=== PATIENT | female | born 1935 | race Caucasian/White ===

== ENCOUNTER → 2017-07-05 | Outpatient (RCR) | payer OTHER ==
--- NOTE | 2017-06-22 09:34 | RS.OPPTEV2 ---
Date of Note: 06/21/17 Visit #: 1 Date of Evaluation: 06/21/17 Payer Source: MEDICARE Treatment Diagnosis: Pain in right knee, Pain in right hip, gait abnormality Prior Level of Function.....Patient was independent with: ADL's, Self Care, Caregiving, Ambulation/Mobility, Community Integration/Access Functional Limitations: Sleep, ADL's, Standing, Squatting, Ambulation, Community Access/Integration Current Subjective/complaints:: Patient reports right knee and hip pain. States pain has been constant for approximately 3-4 weeks. States she has pain with walking and when being on her feet a long time. States sitting too long also bothers her. Reports pain has interrupted her sleep. She is unable to tolerate lying on the right side very long due to right hip pain. States she was taking Motrin regularly, but she is trying to get off of it. She now just takes it at night. She fractured the right patella over 20 years ago, and was told then that she would need a TKA in five years. Reports she had not had any trouble with the knee until now. States Xrays of the right hip reveal arthritis. States her walking has been affected by her right knee and hip pain. She does not use an assistive device. She has used heat and topical rubs such as Biofreeze and Aspercreme. States she occasionally has pain down the leg and some light tingling into the right foot. Treatment Side (optional): Right Medical History Medical History: Hypertension Medical History Comments:: hyperglycemia,hyperlipidemia, osteoporosis Surgical History: Cholecystectomy Surgical History Comments:: Right knee surgery following patella fracture, vein harvesting from right LE Hx Home Medications: aspirin,Calcium,Fosamax,lisinopril, Zetia Patient's Goals: Her goal is to get relief of right hip and knee pain. Pain Assessment - Pain Description Pain Location: right hip and knee Worst Pain Intensity: 6/10 Functional Outcome Measure LE Functional Scale: 50 (50/80=37.5% impairment) - G Codes & Severity Modifier G Codes & Modifier: Mob current CJ. Mob goal CI Source of G Code score: LE functional scale Gait - Gait Pattern Gait Comments: Patient ambulates without an assistive device, independently. Ambulates with an antalgic gait, with decreased stance phase on the right LE. General Range of Motion: Bilateral hip AROM is WFL's. Right knee active flexion to 104 degrees, extension to -2 degrees. Right knee presents significant crepitus with ROM. Left knee active flexion 116 degrees, extension to -10 degrees. Muscle Strength: Right hip generally 4-/5 throughout, quads 4-/5, HS 4/5, ankle 4+/5. Left LE 4+/5 throughout. Trunk strength 4-/5. Special Tests: Valgus and Varus stress tests to the right knee are negative. Trendelenburg sign positive on the right, negative on the left LE. - ROM Comments: Lumbar AROM is WFL's in all directions without reproduction of symptoms into the right hip and knee. - Special Tests SLR Test: Negative Left, Negative Right Seated Dural Stretch Test: Negative Left, Negative Right SI Joint Compression: Negative Palpation Comments:: Patient reports no specific tenderness along the lumbar spine or knee joint. Reports tenderness over the right SI, superior gluteal musculature and over right greater trochanter. Sensation - Sensation Right Lower Extremity: Intact/Normal Left Lower Extremity: Intact/Normal Additional Comments: Additional Comments: Left LE is shorter in supine. Left SLR is tighter than the right. Stretching to the left HS corrects leg length difference. Right SLR to 55 degrees, Left SLR to 40 degrees. Also demonstrates tight hip flexors , especially on the left LE. Interventions - Exercise/Activities/Manual Therapy Exercises/Activities: Patient instructed in exercises for home of SLR, hook- lying hip flexion, and isometric hip adduction. Discussed foot wear and how going without arch support can affect her LE joints and spine. Manual Therapy: NA HOME EXERCISE PROGRAM: SLR, hook-lying hip flexion, and isometric hip adduction - Charges Timed Code Treatment Minutes: 0 Total Treatment Time: 50 mins Procedures billed for this date of service:: EVAL Low Assessment Assessment: Patient presents to therapy with a diagnosis of right hip and knee pain. Reports arthritis in both joints. Describes pain with weight bearing activities and pain affecting her walking. She demonstrates decreased flexion of the right knee joint, left knee lacks 10 degrees from fully extending, and general weakness of the right hip and knee. Limited flexibility in the left HS causes a functional leg length discrepancy. She exhibits symptoms of right greater trochanteric bursitis. She demonstrates potential to feel an improvement with right knee and hip pain with skilled therapy to address LE muscle strength and flexibility imbalances. Patient Education: Education of diagnosis, Body/Joint mechanics, Home Exercise Program, Home Safety, Activity Modification, Education of Plan of Care Rehab Potential: Good Short Term Goals Goal #1: Right hip flexion 4+/5. Goal to be met by: 07/06/17 Goal #2: SLR equal of bilateral LE's. Goal to be met by: 07/06/17 Goal #3: Trunk strength improved to 4/5. Goal to be met by: 07/06/17 Goal #4: Right knee strength improved to 4 to 4+/5. Goal to be met by: 07/06/17 [facility]ent[facility] Goals Goal #1: Pt knows HEP and to continue ex's to maintain functional level after D/ C. Goal to be met by: 08/06/17 Goal #2: Score on LE functional scale improved to less than 19% impairment. Goal to be met by: 08/06/17 Goal #3: Pt to amb. with minimal gait deviation and mininal right hip/knee pain. Goal to be met by: 08/06/17 Goal #4: Pt able to perform standing & walking for ADL's with minimal hip/knee pain. Goal to be met by: 08/06/17 Plan - Treatment to be Provided Procedures: Therapeutic Exercises, Therapeutic Activity, Gait Training, Manual Therapy Modalities: Electrical Stimulation, Ultrasound/Phonophoresis, Class IV Laser, Cryotherapy, Hot Packs Other:: Modalities if needed. - Treatment Plan Frequency: 2-3 X week Duration: 4 weeks ORDER # VISITS AND/OR THROUGH DATE: 08/06/17 - Treatment Code (1) Knee pain Code(s): M25.569 - PAIN IN UNSPECIFIED KNEE Qualifiers: Chronicity: acute Laterality: right Qualified Code(s): M25.561 - Pain in right knee (2) Hip pain Code(s): M25.559 - PAIN IN UNSPECIFIED HIP Qualifiers: Laterality: right Qualified Code(s): M25.551 - Pain in right hip (3) Osteoarthritis Code(s): M19.90 - UNSPECIFIED OSTEOARTHRITIS, UNSPECIFIED SITE Qualifiers: Osteoarthritis location: knee Osteoarthritis type: primary Laterality: right Qualified Code(s): M17.11 - Unilateral primary osteoarthritis, right knee (4) Gait abnormality Code(s): R26.9 - UNSPECIFIED ABNORMALITIES OF GAIT AND MOBILITY Comments: R26.9
--- NOTE | 2017-06-23 11:29 | RS.OPPTDN ---
Subjective Date of Note: 06/23/17 Visit #: 2 Date of Evaluation: 06/21/17 Payer Source: MEDICARE Treatment Diagnosis: Pain in right knee, Pain in right hip, gait abnormality Current Subjective/complaints:: Patient reports a little soreness following the evaluation and with performing the HEP. Reports no specific pain with exercises today. States she has difficulty with stairs, especially descending. She takes one step at a time. - Heat/Cryotherapy Treatment: Hot Pack (X 15 mins to low back and right hip prior to ex) Comments:: in supine Interventions - Exercise/Activities/Manual Therapy Exercises/Activities: Patient assisted with stretching to bilateral HS and heelcords. Performed SAQ's and single hip flexion in hooklying with 2# weight, SLR without weight, resisted hip abduction with red therand, and isometric hip adduction. Discussed use of pillow between the knees to relieve stress on the right hip while in left sidelying. Total minutes of Exercise: X 28 mins Manual Therapy: NA HOME EXERCISE PROGRAM: SLR, hook-lying hip flexion, and isometric hip adduction - Charges Timed Code Treatment Minutes: 28 mins Total Treatment Time: 43 mins Procedures billed for this date of service:: hp, Ex2 Assessment: Patient tolerates all exercises well. She demonstrates the need for continue stretching to address LE flexibility imbalances and strengthening to the right hip and knee. Patient Education: Education of diagnosis, Body/Joint mechanics, Home Exercise Program, Activity Modification Patient demonstrates compliance with HEP?: Yes Short Term Goals Goal #1: Right hip flexion 4+/5. Goal to be met by: 07/06/17 Goal #2: SLR equal of bilateral LE's. Goal to be met by: 07/06/17 Goal #3: Trunk strength improved to 4/5. Goal to be met by: 07/06/17 Goal #4: Right knee strength improved to 4 to 4+/5. Goal to be met by: 07/06/17 [facility] Goals Goal #1: Pt knows HEP and to continue ex's to maintain functional level after D/ C. Goal to be met by: 08/06/17 Goal #2: Score on LE functional scale improved to less than 19% impairment. Goal to be met by: 08/06/17 Goal #3: Pt to amb. with minimal gait deviation and mininal right hip/knee pain. Goal to be met by: 08/06/17 Goal #4: Pt able to perform standing & walking for ADL's with minimal hip/knee pain. Goal to be met by: 08/06/17 Plan PLAN OF CARE EXPIRES ON:: 08/06/17 ORDER # VISITS AND/OR THROUGH DATE: 08/06/17 PLAN: Progress exercises in the department.
--- NOTE | 2017-06-27 11:20 | RS.OPPTDN ---
Subjective Date of Note: 06/27/17 Visit #: 3 Date of Evaluation: 06/21/17 Payer Source: MEDICARE Treatment Diagnosis: Pain in right knee, Pain in right hip, gait abnormality Current Subjective/complaints:: Patient reports she is working on HEP. States she is not sure of progress but states some decrease in pain following treatment today. Pain Assessment - Pain Description Pain Location: Right hip. S-I joint area Current Pain Intensity: 5/10 - Treatment Modality: Ultrasound Parameters/Method Applied: [id number] at 1.5w/cm2 to the right S-I joint region prior to EX. Patient Position: Left Sidelying - Heat/Cryotherapy Treatment: Hot Pack ([id number] to the lowback and right hip prior to US and EX. Patient in supine. ) Interventions - Exercise/Activities/Manual Therapy Exercises/Activities: Began with assisted piriformis stretch in left side- lying. In supine, assisted with stretching of bilateral HS, SKTC, piriformis, and heelcords. Alt hip flexion and SLR, no weight. Isometric hip flexion. Isometric hip adduction with feet in wide placement to encourage hip IR. Reviewed current HEP and patient given copy of hamstring stretching. Total minutes of Exercise: 12mins Manual Therapy: Trigger point release to the piriformis muscle belly. Total minutes of Manual Therapy: 3mins HOME EXERCISE PROGRAM: SLR, hook-lying hip flexion, and isometric hip adduction , hamstring stretching - Charges Timed Code Treatment Minutes: 25mins Total Treatment Time: 45mins Procedures billed for this date of service:: HP, US, EX Assessment: Patient reporting a slight decrease in pain with treatment today. She is motivated to work on HEP and progress. Patient Education: Education of diagnosis, Body/Joint mechanics, Home Exercise Program Comments: Patient education of body mechanics and need to lengthen hamstrings. Patient demonstrates compliance with HEP?: Yes Short Term Goals Goal #1: Right hip flexion 4+/5. Goal to be met by: 07/06/17 Progress towards Goal:: Progressing Goal #2: SLR equal of bilateral LE's. Goal to be met by: 07/06/17 Progress towards Goal:: Progressing Goal #3: Trunk strength improved to 4/5. Goal to be met by: 07/06/17 Goal #4: Right knee strength improved to 4 to 4+/5. 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 Goal to be met by: 08/06/17 Progress towards goal: Progressing Goal #2: Score on LE functional scale improved to less than 19% impairment. Goal to be met by: 08/06/17 Goal #3: Pt to amb. with minimal gait deviation and mininal right hip/knee pain. Goal to be met by: 08/06/17 Goal #4: Pt able to perform standing & walking for ADL's with minimal hip/knee pain. Goal to be met by: 08/06/17 Plan PLAN OF CARE EXPIRES ON:: 08/06/17 ORDER # VISITS AND/OR THROUGH DATE: 08/06/17 PLAN: Continue modalites and progress exercise to reduce pain and increase functional mobility.
--- NOTE | 2017-06-28 13:53 | RS.OPPTDN ---
Subjective Date of Note: 06/28/17 Visit #: 4 Date of Evaluation: 06/21/17 Payer Source: MEDICARE Treatment Diagnosis: Pain in right knee, Pain in right hip, gait abnormality Current Subjective/complaints:: Patient reports increased soreness today following yesterdays therapy session. States she wants to continue progressing exercise. Patient states she is seeing improvement overall in her pain level and noticed right S-I was not as painful to manual pressure. Pain Assessment - Pain Description Pain Location: Right hip and S-I joint area. Current Pain Intensity: 5/10 - Treatment Modality: Ultrasound Parameters/Method Applied: [id number] at 1.5w/cm2 to the right hip with focus at the right S-I joint area. Patient Position: Left Sidelying - Heat/Cryotherapy Treatment: Hot Pack ([id number] to the lowback and right hip prior to US ) Interventions - Exercise/Activities/Manual Therapy Exercises/Activities: Assisted stretching of the bilateral hamstirngs, piriformis, SKTC, and short LTR. Alt hip flexion and isometric hip flexion. Isometric hip adduction with feet in wide placement to encourage hip IR. Reviewed current HEP, no new additions. Total minutes of Exercise: 14mins Manual Therapy: NA HOME EXERCISE PROGRAM: SLR, hook-lying hip flexion, and isometric hip adduction , hamstring stretching - Charges Timed Code Treatment Minutes: 26mins Total Treatment Time: 46mins Procedures billed for this date of service:: HP, US, EX Assessment: Patient reporting improvement in symptoms and is motivated to work on HEP. Patient Education: Home Exercise Program, Home Safety, Activity Modification Patient demonstrates compliance with HEP?: Yes Short Term Goals Goal #1: Right hip flexion 4+/5. Goal to be met by: 07/06/17 Progress towards Goal:: Progressing Goal #2: SLR equal of bilateral LE's. Goal to be met by: 07/06/17 Progress towards Goal:: Progressing Goal #3: Trunk strength improved to 4/5. Goal to be met by: 07/06/17 Goal #4: Right knee strength improved to 4 to 4+/5. Goal to be met by: 07/06/17 [facility] Goals Goal #1: Pt knows HEP and to continue ex's to maintain functional level after D/ C. Goal to be met by: 08/06/17 Progress towards goal: Progressing Goal #2: Score on LE functional scale improved to less than 19% impairment. Goal to be met by: 08/06/17 Goal #3: Pt to amb. with minimal gait deviation and mininal right hip/knee pain. Goal to be met by: 08/06/17 Progress towards goal: Progressing Goal #4: Pt able to perform standing & walking for ADL's with minimal hip/knee pain. Goal to be met by: 08/06/17 Plan PLAN OF CARE EXPIRES ON:: 08/06/17 ORDER # VISITS AND/OR THROUGH DATE: 08/06/17 PLAN: Continue modalities and progress exercise to reduce pain and increase functional activity level.
--- NOTE | 2017-06-30 12:03 | RS.OPPTDN ---
Subjective Date of Note: 06/30/17 Visit #: 5 Date of Evaluation: 06/21/17 Payer Source: MEDICARE Treatment Diagnosis: Pain in right knee, Pain in right hip, gait abnormality Current Subjective/complaints:: Patient reports some continued soreness in the right hip just lateral to the S-I joint. She reports the pain and soreness is consistently improving. Pain Assessment - Pain Description Pain Location: Right hip and S-I joint region - Treatment Modality: US with ES (Comb.) Parameters/Method Applied: [id number] with US at 1.5w/cm2 and Estim to 9p.v. to the right S-I joint area prior to EX. Patient Position: Left Sidelying - Heat/Cryotherapy Treatment: Hot Pack ([id number] to the lowback and hips prior to US and EX. Patient in supine. ) Interventions - Exercise/Activities/Manual Therapy Exercises/Activities: Assisted stretching of the bilateral hamstirngs, piriformis, SKTC, and short LTR. Alt hip flexion and isometric hip flexion. Isometric hip adduction. Isometric hip flexion. SLR. Green theraband for short range hip abduction in hook-lying. Total minutes of Exercise: 14mins Manual Therapy: NA HOME EXERCISE PROGRAM: SLR, hook-lying hip flexion, and isometric hip adduction , hamstring stretching - Charges Timed Code Treatment Minutes: 26mins Total Treatment Time: 50mins Procedures billed for this date of service:: HP, USCOM, EX Assessment: Patient progressing with exercise and with reports of reduction in pain/soreness. Patient Education: Home Exercise Program Patient demonstrates compliance with HEP?: Yes Short Term Goals Goal #1: Right hip flexion 4+/5. Goal to be met by: 07/06/17 Progress towards Goal:: Partially Met Goal #2: SLR equal of bilateral LE's. Goal to be met by: 07/06/17 Progress towards Goal:: Partially Met Goal #3: Trunk strength improved to 4/5. Goal to be met by: 07/06/17 Progress towards Goal:: Partially Met Goal #4: Right knee strength improved to 4 to 4+/5. 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 Goal to be met by: 08/06/17 Progress towards goal: Progressing Goal #2: Score on LE functional scale improved to less than 19% impairment. Goal to be met by: 08/06/17 Goal #3: Pt to amb. with minimal gait deviation and mininal right hip/knee pain. Goal to be met by: 08/06/17 Progress towards goal: Progressing Goal #4: Pt able to perform standing & walking for ADL's with minimal hip/knee pain. Goal to be met by: 08/06/17 Plan PLAN OF CARE EXPIRES ON:: 08/06/17 ORDER # VISITS AND/OR THROUGH DATE: 08/06/17 PLAN: Continue modalities and progress exercise to reduce pain and increase functional activity level.
--- NOTE | 2017-07-04 12:12 | RS.OPPTDN ---
Subjective Date of Note: 07/04/17 Visit #: 6 Date of Evaluation: 06/21/17 Payer Source: MEDICARE Treatment Diagnosis: Pain in right knee, Pain in right hip, gait abnormality Current Subjective/complaints:: Patient reports a noticable improvement in her pain level since last session. States she can perform some light daily activities without increased pain. She also reports she has noticed improvement in her walking pattern, as she in not dropping the right hip. Pain Assessment - Pain Description Pain Location: Right hip and S-I joint region Pain Description: Aching Current Pain Intensity: 2-3/10 Other Comments regarding Pain:: Reports periods of no pain. - Treatment Modality: US with ES (Comb.) Parameters/Method Applied: [id number] at 1.5w/cm2 to the right hip, lower lumbar paraspinals and S-I joint area prior to EX. Patient in left side-lying. Patient Position: Left Sidelying - Heat/Cryotherapy Treatment: Hot Pack ([id number] to the lowback and right hip. Patient in supine. ) Interventions - Exercise/Activities/Manual Therapy Exercises/Activities: Assisted stretching of the bilateral hamstirngs, piriformis, SKTC, and short LTR. Alt hip flexion and isometric hip flexion. Isometric hip adduction. SLR. Ended with additional stretching. No new additions to HEP. Total minutes of Exercise: 14mins Manual Therapy: NA HOME EXERCISE PROGRAM: SLR, hook-lying hip flexion, and isometric hip adduction , hamstring stretching - Charges Timed Code Treatment Minutes: 26mins Total Treatment Time: 46mins Procedures billed for this date of service:: HP, USCOM, EX Assessment: Patient responding well with reports of reduction in pain and increased activity in her home. This is beneficial as patient lives alone. Patient Education: Home Exercise Program, Activity Modification Patient demonstrates compliance with HEP?: Yes Short Term Goals Goal #1: Right hip flexion 4+/5. Goal to be met by: 07/06/17 Progress towards Goal:: Partially Met Goal #2: SLR equal of bilateral LE's. Goal to be met by: 07/06/17 Progress towards Goal:: Partially Met Goal #3: Trunk strength improved to 4/5. Goal to be met by: 07/06/17 Progress towards Goal:: Partially Met Goal #4: Right knee strength improved to 4 to 4+/5. 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 Goal to be met by: 08/06/17 Progress towards goal: Progressing Goal #2: Score on LE functional scale improved to less than 19% impairment. Goal to be met by: 08/06/17 Goal #3: Pt to amb. with minimal gait deviation and mininal right hip/knee pain. Goal to be met by: 08/06/17 Progress towards goal: Partially Met Goal #4: Pt able to perform standing & walking for ADL's with minimal hip/knee pain. Goal to be met by: 08/06/17 Plan PLAN OF CARE EXPIRES ON:: 08/06/17 ORDER # VISITS AND/OR THROUGH DATE: 08/06/17 PLAN: Continue modalities and progress exercise to reduce pain and increase functional activity level.
--- NOTE | 2017-07-05 13:28 | RS.OPPTDN ---
Subjective Date of Note: 07/05/17 Visit #: 7 Date of Evaluation: 06/21/17 Payer Source: MEDICARE Treatment Diagnosis: Pain in right knee, Pain in right hip, gait abnormality Current Subjective/complaints:: Patient reports significant progress with hip pain. States she has been able to walk short distances and perofrm light daily activities without increased pain. Pain Assessment - Pain Description Pain Location: Right lowback, hip, S-I joint region. Pain Description: Aching Current Pain Intensity: mild Other Comments regarding Pain:: Reports mild discomfort with increased walking in hospital. States little to no discomfort if she walks short distances in her home. - Treatment Modality: US with ES (Comb.) Parameters/Method Applied: [id number] with US at 1.5w/cm2 and Estim to 10p.v. to the lower right lumbar paraspinals and S-I joint region prior to EX. Patient Position: Left Sidelying - Heat/Cryotherapy Treatment: Hot Pack ([id number] to lowback and right hip prior to USCOM and EX. Patient in supine. ) Interventions - Exercise/Activities/Manual Therapy Exercises/Activities: Began with clams in left side-lying. Assisted stretching of the bilateral hamstrings, piriformis, and SKTC. Alt hip flexion and isometric hip flexion. Isometric hip adduction. SLR. Green theraband for resistive hip abd in hook-lying. Ended with additional stretching. Total minutes of Exercise: 15mins Manual Therapy: NA HOME EXERCISE PROGRAM: SLR, hook-lying hip flexion, and isometric hip adduction , hamstring stretching, side-lying clams, green theraband for resistive hip abd. - Charges Timed Code Treatment Minutes: 27mins Total Treatment Time: 50mins Procedures billed for this date of service:: HP, USCOM, EX Assessment: Patient progressing well with reports of pain reduction and increase in functional mobility. Patient Education: Home Exercise Program, Activity Modification Comments: Patient given copies of new exercises. Patient demonstrates compliance with HEP?: Yes Short Term Goals Goal #1: Right hip flexion 4+/5. Goal to be met by: 07/06/17 Progress towards Goal:: Partially Met Goal #2: SLR equal of bilateral LE's. Goal to be met by: 07/06/17 Progress towards Goal:: Met Goal #3: Trunk strength improved to 4/5. Goal to be met by: 07/06/17 Progress towards Goal:: Partially Met Goal #4: Right knee strength improved to 4 to 4+/5. Goal to be met by: 07/06/17 Progress towards Goal:: Progressing [facility] Goals Goal #1: Pt knows HEP and to continue ex's to maintain functional level after D/ C. Goal to be met by: 08/06/17 Progress towards goal: Progressing Goal #2: Score on LE functional scale improved to less than 19% impairment. Goal to be met by: 08/06/17 Goal #3: Pt to amb. with minimal gait deviation and mininal right hip/knee pain. Goal to be met by: 08/06/17 Progress towards goal: Partially Met Goal #4: Pt able to perform standing & walking for ADL's with minimal hip/knee pain. Goal to be met by: 08/06/17 Progress towards goal: Partially Met Plan PLAN OF CARE EXPIRES ON:: 08/06/17 ORDER # VISITS AND/OR THROUGH DATE: 08/06/17 PLAN: Continue modalities and progress exercise to reduce pain and increase function.
== END ==
PROVIDERS: ATTEND Internal Medicine
DX: M17.11 Unilateral primary osteoarthritis, right knee (principal); M25.561 Pain in right knee; M25.551 Pain in right hip

== ENCOUNTER 2017-07-12 10:00 | Outpatient (RCR) | payer OTHER ==
--- NOTE | 2017-07-07 15:16 | RS.OPPTDN ---
Subjective Date of Note: 07/07/17 Visit #: 8 Date of Evaluation: 06/21/17 Payer Source: MEDICARE Treatment Diagnosis: Pain in right knee, Pain in right hip, gait abnormality Current Subjective/complaints:: Patient reports continued improvement in right hip and S-I area pain. States she is walking better. Reports right ankle soreness today. States she is able to stand to do light cooking and dishes. States she is avoiding bending over to fern picker items, as well as lifting. Pain Assessment - Pain Description Pain Location: Right hip and S-I joint Pain Description: tender, sore Current Pain Intensity: 1-2/10 Worst Pain Intensity: 2-3/10 Other Comments regarding Pain:: States she has periods of no pain with walking and with light ADL's. - Treatment Modality: US with ES (Comb.) Parameters/Method Applied: [id number] with US at 1.5w/cm2 and Estim at 10-11p.v. to the right lower lumbar paraspinals and right S-I joint. Patient Position: Left Sidelying - Heat/Cryotherapy Treatment: Hot Pack ([id number] to the LB and right hip prior to USCOM and EX. Patient in supine. ) Interventions - Exercise/Activities/Manual Therapy Exercises/Activities: Assisted stretching of the bilateral hamstrings, piriformis, SKTC, and LTR. Limited figure 4 hip stretching. Isometric hip flexion. Isometric hip adduction. SLR. Green theraband for resistive hip abd in hook-lying. Bridge x2reps. Ended with additional stretching. Total minutes of Exercise: 15mins Manual Therapy: NA HOME EXERCISE PROGRAM: SLR, hook-lying hip flexion, and isometric hip adduction , hamstring stretching, side-lying clams, green theraband for resistive hip abd. - Charges Timed Code Treatment Minutes: 27mins Total Treatment Time: 50mins Procedures billed for this date of service:: HP, USCOM, EX Assessment: Patient continues to report progress with pain and with ability to perform functional daily activities at home. This is important to the patient as she lives alone. Patient Education: Body/Joint mechanics, Home Exercise Program, Home Safety, Activity Modification Comments: Reviewed HEP, body mechanics, and safety with lifting. Patient demonstrates compliance with HEP?: Yes Short Term Goals Goal #1: Right hip flexion 4+/5. Goal to be met by: 07/06/17 Progress towards Goal:: Partially Met Goal #2: SLR equal of bilateral LE's. Goal to be met by: 07/06/17 Progress towards Goal:: Met Goal #3: Trunk strength improved to 4/5. Goal to be met by: 07/06/17 Progress towards Goal:: Met Goal #4: Right knee strength improved to 4 to 4+/5. 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 Goal to be met by: 08/06/17 Progress towards goal: Partially Met Goal #2: Score on LE functional scale improved to less than 19% impairment. Goal to be met by: 08/06/17 Goal #3: Pt to amb. with minimal gait deviation and mininal right hip/knee pain. Goal to be met by: 08/06/17 Progress towards goal: Met Goal #4: Pt able to perform standing & walking for ADL's with minimal hip/knee pain. Goal to be met by: 08/06/17 Progress towards goal: Partially Met Plan PLAN OF CARE EXPIRES ON:: 08/06/17 ORDER # VISITS AND/OR THROUGH DATE: 08/06/17 PLAN: Continue modalities and progress resistive exercise to increase functional activity level.
--- NOTE | 2017-07-12 15:09 | RS.OPPTDN ---
Subjective Date of Note: 07/12/17 Visit #: 9 Date of Evaluation: 06/21/17 Payer Source: MEDICARE Treatment Diagnosis: Pain in right knee, Pain in right hip, gait abnormality Current Subjective/complaints:: Patient reports she is pleased with her progress. States she can perform most daily activities as needed at home. She states she will continue HEP and is ready for discharge. Pain Assessment - Pain Description Pain Location: Right S-I joint/upper glut Pain Description: Dull Current Pain Intensity: 1-2/10 Other Comments regarding Pain:: Has periods of no pain. - Treatment Modality: US with ES (Comb.) Parameters/Method Applied: [id number] with US at 1.5w/cm2 and Estim at 12-13p.v. to the right lower lumbar paraspinals and S-I joint area. Patient Position: Left Sidelying - Heat/Cryotherapy Treatment: Hot Pack ([id number] to the lowback and right hip prior to USCOM. Patient in supine. ) Interventions - Exercise/Activities/Manual Therapy Exercises/Activities: Assisted stretching of the bilateral hamstrings, piriformis, SKTC, and LTR. Isometric hip flexion. Isometric hip adduction. SLR. Bridge x2reps. Reveiwed safe lifting and body mechanics with ADL's. Discussed and finalized instruction of HEP. Total minutes of Exercise: 14mins Manual Therapy: NA HOME EXERCISE PROGRAM: SLR, hook-lying hip flexion, and isometric hip adduction , hamstring stretching, side-lying clams, green theraband for resistive hip abd. - Objective Findings Observations,measurements,etc.: Patients LE functional scale score increased to 55/80 or 31.25% deficit (was 50/88 on Eval) She reports several improvements with daily activities and may have seen more improvement if the Oswestry scale were used. - Charges Timed Code Treatment Minutes: 26mins Total Treatment Time: 46mins Procedures billed for this date of service:: HP, USCOM, EX Assessment: Patient continues to have some discomfort in the right hip at the S- I joint but is reporting significant improvement in functional activity level. She feels she can continue with HEP at this time. Patient Education: Education of diagnosis, Home Exercise Program, Home Safety, Activity Modification, Education of Plan of Care Patient demonstrates compliance with HEP?: Yes Short Term Goals Goal #1: Right hip flexion 4+/5. Goal to be met by: 07/06/17 Progress towards Goal:: Met Goal #2: SLR equal of bilateral LE's. Goal to be met by: 07/06/17 Progress towards Goal:: Met Goal #3: Trunk strength improved to 4/5. Goal to be met by: 07/06/17 Progress towards Goal:: Met Goal #4: Right knee strength improved to 4 to 4+/5. Goal to be met by: 07/06/17 Progress towards Goal:: Partially Met Assisted Goals Goal #1: Pt knows HEP and to continue ex's to maintain functional level after D/ C. Goal to be met by: 08/06/17 Progress towards goal: Met Goal #2: Score on LE functional scale improved to less than 19% impairment. Goal to be met by: 08/06/17 Progress towards goal: Partially Met Goal #3: Pt to amb. with minimal gait deviation and mininal right hip/knee pain. Goal to be met by: 08/06/17 Progress towards goal: Met Goal #4: Pt able to perform standing & walking for ADL's with minimal hip/knee pain. Goal to be met by: 08/06/17 Progress towards goal: Met Plan PLAN OF CARE EXPIRES ON:: 08/06/17 ORDER # VISITS AND/OR THROUGH DATE: 08/06/17 PLAN: Discharge with HEP.
--- NOTE | 2017-07-17 11:44 | RS.OPPTDC ---
Date of Discharge: 07/12/17 Date of Evaluation: 06/21/17 Number of Visits: 9 Treatment Diagnosis: Pain in right knee, Pain in right hip, gait abnormality Current Complaints/Gains: Patient reports that she has progressed well and feels she is ready to stop therapy and continue with her HEP. She reports performing the HEP well and able to perform all ADL's. She is now able to walk short to moderate distances without an increase in pain. Functional Outcome Measure Oswestry LBP: 55 (55/80=31.25% impairment) - G Codes & Severity Modifier G Codes & Modifier: Mob Goal CI. Mob D/C CJ Source of G Code score: Oswestry LBP scale Interventions - Exercise/Activities/Manual Therapy Exercises/Activities: NA Manual Therapy: NA HOME EXERCISE PROGRAM: SLR, hook-lying hip flexion, and isometric hip adduction , hamstring stretching, side-lying clams, green theraband for resistive hip abd. - Objective Findings Observations,measurements,etc.: Trunk strength 4/5. Right knee 4/5. Demontrates SLR equal without pain. Patient independent with HEP. - Charges Timed Code Treatment Minutes: NA Total Treatment Time: NA Procedures billed for this date of service:: NA Assessment Assessment: Patient made great progress with therapy. She fully met 6 of 8 goals. She did not meet her LTG addressing Oswestry scale, but reports being able to perform all ADL's and tolerate ambulation better without pain. Short Term Goals Goal #1: Right hip flexion 4+/5. Goal to be met by: 07/06/17 Progress towards Goal:: Met Goal #2: SLR equal of bilateral LE's. Goal to be met by: 07/06/17 Progress towards Goal:: Met Goal #3: Trunk strength improved to 4/5. Goal to be met by: 07/06/17 Progress towards Goal:: Met Goal #4: Right knee strength improved to 4 to 4+/5. 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 Goal to be met by: 08/06/17 Progress towards goal: Met Goal #2: Score on LE functional scale improved to less than 19% impairment. Goal to be met by: 08/06/17 Progress towards goal: Partially Met Goal #3: Pt to amb. with minimal gait deviation and mininal right hip/knee pain. Goal to be met by: 08/06/17 Progress towards goal: Met Goal #4: Pt able to perform standing & walking for ADL's with minimal hip/knee pain. Goal to be met by: 08/06/17 Progress towards goal: Met Plan Reason for Discharge:: Maximum Potential Met
== END 2017-08-02 ==
PROVIDERS: ATTEND Internal Medicine
DX: M17.11 Unilateral primary osteoarthritis, right knee (principal); M25.561 Pain in right knee; M25.551 Pain in right hip